=== PATIENT | female | born 1950 | race Caucasian/White ===

== ENCOUNTER → 2016-07-25 | Outpatient (CLI) | payer OTHER, BC | LOC: MMPC 09:00 | PROVIDERS: ATTEND Family Medicine | DX: I10 Essential (primary) hypertension (principal); I25.10 Atherosclerotic heart disease of native coronary artery without angina pectoris; D64.9 Anemia, unspecified; E87.1 Hypo-osmolality and hyponatremia; R14.0 Abdominal distension (gaseous); Z72.0 Tobacco use | CPT/HCPCS: 99214 ==

== ENCOUNTER → 2016-07-27 | Outpatient (CLI) | payer OTHER, BC ==
[2016-07-27 10:42] LABS: HEMOGLOBIN 11.4 g/dL (12.0-16.0); MEAN CORPUSCULAR HEMOGLOBIN 38.5 PG (27-31); MEAN CORPUSCULAR HGB CONC 34.5 g/dL (33-37); MEAN PLATELET VOLUME 10.1 FL (7.4-12.2); RDW COEFFICIENT OF VARIATION 13.4 % (11.5-14.5); RED BLOOD COUNT 2.96 10^6/uL (4.20-5.40)
[2016-07-27 10:50] LABS: ASPARTATE AMINO TRANSFERASE 106 IU/L (8-39); BILIRUBIN,TOTAL 0.7 mg/dL (0.3-1.2); BLOOD UREA NITROGEN 16 mg/dL (7-22); BUN/CREATININE RATIO 17.77 (6-20); CALCIUM 9.4 mg/dL (8.7-10.7); CHLORIDE 95 meq/L (98-112); CREATININE 0.9 mg/dL (0.50-1.20); EST GLOMERULAR FILTRATION > 60 (>60 ml/min/1.73m(2)); GLUCOSE 73 mg/dL (78-110); POTASSIUM 4.3 meq/L (3.8-5.2); SODIUM 132 meq/L (135-145); TOTAL PROTEIN 7.3 g/dL (6.1-8.0)
[2016-07-27 11:03] LABS: LDL CHOLESTEROL,CALCULATED 7.8 mg/dL
== END ==
LOC: MOB LAB 08:41
PROVIDERS: ATTEND Family Medicine
DX: D64.9 Anemia, unspecified (principal); E87.1 Hypo-osmolality and hyponatremia; I10 Essential (primary) hypertension; I25.10 Atherosclerotic heart disease of native coronary artery without angina pectoris; Z72.0 Tobacco use
CPT/HCPCS: 36415; 80053; 80061; 83690; 85027

== ENCOUNTER → 2016-11-08 | Outpatient (CLI) | payer OTHER, BC ==
[2016-11-08 10:02] LABS: HEMATOCRIT 37.2 % (37.0-47.0); HEMOGLOBIN 12.6 g/dL (12.0-16.0); MEAN CORPUSCULAR HEMOGLOBIN 36.2 PG (27-31); MEAN CORPUSCULAR HGB CONC 33.9 g/dL (33-37); MEAN CORPUSCULAR VOLUME 106.9 FL (81-99); MEAN PLATELET VOLUME 9.9 FL (7.4-12.2); RED BLOOD COUNT 3.48 10^6/uL (4.20-5.40)
[2016-11-08 12:13] LABS: BLOOD UREA NITROGEN 18 mg/dL (7-22); CALCIUM 10.1 mg/dL (8.7-10.7); EST GLOMERULAR FILTRATION > 60 (>60 ml/min/1.73m(2)); LIPASE 384 IU/L (23-300); SERUM ALBUMIN 4.2 g/dL (3.5-4.8)
[2016-11-08 15:53] LABS: FREE T4 (FREE THYROXINE) 1.04 ng/dL (0.93-1.71)
== END ==
LOC: LAB 09:37
PROVIDERS: ATTEND Family Medicine
DX: E03.9 Hypothyroidism, unspecified (principal); I25.10 Atherosclerotic heart disease of native coronary artery without angina pectoris; I10 Essential (primary) hypertension; D64.9 Anemia, unspecified; R94.5 Abnormal results of liver function studies; R74.8 Abnormal levels of other serum enzymes; E87.1 Hypo-osmolality and hyponatremia; F17.200 Nicotine dependence, unspecified, uncomplicated
CPT/HCPCS: 36415; 80053; 83690; 84439; 84443; 85027